=== PATIENT | female | born 1950 | race Caucasian/White ===

== ENCOUNTER 2020-11-30 14:14 | Inpatient (IN) | payer OTHER ==
[~2020-11-30] VITALS: Ht 167.6 cm; Wt 95.3 kg
[2020-11-30 17:48] LABS: HEMOGLOBIN 13.4 gm/dl (12.3-15.3); RED BLOOD COUNT 4.11 M/UL (4.00-5.10); WHITE BLOOD COUNT 17.3 K/UL (4.5-11.0)
[2020-11-30 18:08] LABS: BUN/CREATININE RATIO 13 (0-10)
[2020-11-30] MEDS ORDERED: ESTRACE1 MG PO (23:54)
[2020-11-30] MEDS ORDERED: HYDROCHLOROTHIA25 MG PO (23:54)
[2020-11-30] MEDS ORDERED: ATENOLOL25 MG PO (23:54)
[2020-12-01 03:30] LABS: HEMOGLOBIN 13.1 gm/dl (12.3-15.3); RED BLOOD COUNT 4.05 M/UL (4.00-5.10)
[2020-12-01 03:40] LABS: WHITE BLOOD COUNT 11.5 K/UL (4.5-11.0)
[2020-12-01 03:49] LABS: BUN/CREATININE RATIO 17 (0-10)
[2020-12-02 06:54] LABS: WHITE BLOOD COUNT 12.9 K/UL (4.5-11.0)
[2020-12-02 06:58] LABS: RED BLOOD COUNT 3.43 M/UL (4.00-5.10)
[2020-12-02 07:29] LABS: BUN/CREATININE RATIO 21 (0-10)
[2020-12-03 05:10] LABS: HEMOGLOBIN 11.3 gm/dl (12.3-15.3); RED BLOOD COUNT 3.5 M/UL (4.00-5.10)
[2020-12-03 05:30] LABS: BUN/CREATININE RATIO 14 (0-10)
[2020-12-04 03:59] LABS: HEMOGLOBIN 11.2 gm/dl (12.3-15.3); RED BLOOD COUNT 3.57 M/UL (4.00-5.10); WHITE BLOOD COUNT 14.3 K/UL (4.5-11.0)
[2020-12-04 04:08] LABS: BUN/CREATININE RATIO 14 (0-10)
[2020-12-05 05:20] LABS: HEMOGLOBIN 11.4 gm/dl (12.3-15.3); RED BLOOD COUNT 3.57 M/UL (4.00-5.10); WHITE BLOOD COUNT 13.5 K/UL (4.5-11.0)
[2020-12-05 05:36] LABS: BUN/CREATININE RATIO 18 (0-10)
[2020-12-08] MEDS ORDERED: BACTRIM DS TAB1 EACH PO (08:32)
--- NOTE | 2020-12-08 10:43 | NUR ---
INSTRUCTED PATIENT TAKE MEDS PRESCRIBED. SENT TO PHARMACY. EAT BEFORE TAKING TO PREVENT NAUSEA. FOLLOW UP WITH MD SCHEDULDED , VERBALIZED UNDERSTANDING., ROD ESCUDERO R.N.
== END 2020-12-08 12:32 | disposition home or self-care (01) | DRG 330 ==
LOC: ER1 14:14 → CDU 19:28 → MED SURG 4 22:42
PROVIDERS: Physician Assistant; ADMIT Surgery
PROC: 0DNU0ZZ Release Omentum, Open Approach (ICD-10-PCS; 2020-11-30)
PROC: 0DB80ZZ Excision of Small Intestine, Open Approach (ICD-10-PCS; principal; 2020-11-30 20:58)
DX: K57.00 Diverticulitis of small intestine with perforation and abscess without bleeding (principal); E87.1 Hypo-osmolality and hyponatremia; I10 Essential (primary) hypertension; Z20.822 Contact with and (suspected) exposure to COVID-19; E87.6 Hypokalemia; Z87.11 Personal history of peptic ulcer disease; Z90.710 Acquired absence of both cervix and uterus; Z88.5 Allergy status to narcotic agent; Z82.49 Family history of ischemic heart disease and other diseases of the circulatory system; Z98.42 Cataract extraction status, left eye; Z98.41 Cataract extraction status, right eye
CPT/HCPCS: 36415; 71045; 80048; 80053; 83690; 85025; 94640; 94664; 94760; 96374; 97110; 97116-GP-CQ; 97161; 99285; C9113; J1100; J1170; J1335; J1650; J1885; J2001; J2405; J2543; J2704; J2710; J3010; J3480; J7030; J7120; Q9967; U0002

== ENCOUNTER 2021-12-20 15:17 | Emergency (ER) | payer OTHER ==
[~2021-12-20 15:17] MED LIST: ATENOLOL25 MG PO; BACTRIM DS TAB1 EACH PO; ESTRACE1 MG PO; HYDROCHLOROTHIA25 MG PO
[2021-12-20 17:19] LABS: HEMOGLOBIN 9.7 gm/dl (12.3-15.3); RED BLOOD COUNT 3.07 M/UL (4.00-5.10); WHITE BLOOD COUNT 15.3 K/UL (4.5-11.0)
[2021-12-20 17:44] LABS: BUN/CREATININE RATIO 49 (0-10)
[2021-12-20] MEDS ORDERED: PROTONIX 40 MG40 M1 PO (20:45)
== END 2021-12-20 21:45 | disposition home or self-care (01) ==
LOC: ER1 15:17
PROVIDERS: Physician Assistant
DX: K29.00 Acute gastritis without bleeding (principal); I10 Essential (primary) hypertension
CPT/HCPCS: 71045; 80053; 81001; 82550; 82553; 83605; 84484; 85025; 86140; 87086; 96361; 96374; 99284; C9113; Q9967